=== PATIENT | female | born 1990 | race Caucasian/White ===

== ENCOUNTER 2017-07-20 23:29 | Emergency (ER) | payer SELFPAY ==
[~2017-07-20] VITALS: Ht 165.1 cm; Wt 61.2 kg
[2017-07-21 01:03] VITALS: BP 130/86
--- NOTE | 2017-07-21 01:03 | NUR ---
Patient discharged to home in stable conditon. Written and verbal after care instructions given. Patient verbalizes understanding of instructions.
== END 2017-07-21 01:04 | disposition home or self-care (01) ==
LOC: ER 23:29
DX: T78.09XA Anaphylactic reaction due to other food products, initial encounter (principal)
CPT/HCPCS: A4663; J1200; J2930; J3490